=== PATIENT | female | born 1950 | race Hispanic/Latino ===

== ENCOUNTER 2020-01-14 10:13 | Outpatient (CLI) | payer MEDICARE ==
[2020-01-14 11:13] LABS: Blood Urea Nitrogen 11 mg/dL (7-17)
--- NOTE | 2020-01-14 13:39 | Cat Scan Report ---
CT CHEST WITH CONTRAST INDICATION / CLINICAL INFORMATION: PERSONAL HISTORY OF MALIGNANT NEOPLASM OF BREAST. TECHNIQUE: Axial CT images were obtained through the chest after 100 cc Omnipaque 300 IV contrast. Sagittal and coronal reformatted images. All CT scans at this location are performed using CT dose reduction for A KATHERYN by means of automated exposure control. COMPARISON: None available. FINDINGS: HEART: Heart size is within normal limits. A multilead pacemaker device is in position. No pericardia l abnormality. THORACIC AORTA: No significant abnormality. MEDIASTINUM and NILA: There are multiple subcentimeter lymph nodes in the paratracheal chain and AP w indow. These measure less than 1 cm in short axis. No pathologic adenopathy is appreciated. The remai sudhir mediastinal structures are unremarkable. LUNGS: Moderate to severe centrilobular and paraseptal emphysematous changes are identified in the up per lung zones. Subpleural scarring is identified in the right anterior lung which probably represent s previous radiation changes. No suspicious pulmonary nodule or mass is detected. PLEURA: No significant pleural effusion. No pneumothorax. SKELETAL SYSTEM: Intact. No suspicious bony lesion is identified. UPPER ABDOMEN: No significant abnormality. ADDITIONAL FINDINGS: Stable right mastectomy changes. IMPRESSION: No evidence for disease recurrence or metastasis in the chest. Advanced emphysematous changes. Signer Name: Mark Alba Jr, MD Signed: 01/14/2020 1:35 PM Workstation Name: [id number]
== END 2020-01-14 10:14 | disposition home or self-care (01) ==
LOC: CT 10:13
PROVIDERS: ATTEND Surgery
DX: J43.9 Emphysema, unspecified (principal); N64.4 Mastodynia; Z85.3 Personal history of malignant neoplasm of breast
CPT/HCPCS: 36415; 71260; 82565; 84520; Q9967